=== PATIENT | male | born 1955 | race Caucasian/White ===

== ENCOUNTER 2022-01-25 09:17 | Outpatient (CLI) | payer MEDICARE, BC, SELFPAY ==
[2022-01-25 11:01] LABS: Creatinine Urine 86.5 mg/dL
[2022-01-25 11:08] LABS: Microalbumin Creatinine Ratio 10 mg/g (0-30); Microalbumin Urine 1 mg/dL
[2022-01-25 11:11] LABS: Albumin* 4.4 g/dL (3.3-5.0); Chloride* 104 mmol/L (96-114); Sodium* 138 mmol/L (135-149)
[2022-01-25 11:12] LABS: Potassium* 4.5 mmol/L (3.6-5.1)
[2022-01-25 11:14] LABS: Alanine Aminotransferase* 26 U/L (4-50); Alkaline Phosphatase* 66 U/L (40-150); Aspartate Amino Transferase* 34 U/L (12-35); Bilirubin Total* 0.5 mg/dL (0.1-1.5); Blood Urea Nitrogen* 20 mg/dL (7-30); Calcium* 9.6 mg/dL (8.4-10.6); Carbon Dioxide* 25 mmol/L (20-32); Cholesterol* 125 mg/dL (90-199); Creatinine* 1.1 mg/dL (0.5-1.5); Estimated Glomerular Filt Rate 74 ml/min; Glucose* 106 mg/dL (60-115); Triglycerides* 150 mg/dL (40-149)
[2022-01-25 11:15] LABS: HDL Cholesterol* 36 mg/dL (>=40); LDL Cholesterol Calculated 59 mg/dL (<100)
== END 2022-01-25 09:18 | disposition home or self-care (01) ==
PROVIDERS: PCP Internal Medicine; Visit Provider Internal Medicine
DX: E11.9 Type 2 diabetes mellitus without complications (principal)
CPT/HCPCS: 80053; 80061; 82043; 82570

== ENCOUNTER 2022-02-21 08:11 | Outpatient (CLI) | payer MEDICARE, BC, SELFPAY ==
--- OUTSIDE RECORDS SUMMARY | 2022-02-21 08:17 | XMS_ITS | Clinical Summary ---
:1955 Author Organization [employer] [facility] [employer] [facility] [place] [address] Care Team Providers Name Role Phone Yves Dyer MD Primary Care Provider Allergies No known active allergies Medications Medication Sig Dispensed Refills Start Date End Date Status aspirin enteric Take 1 tablet by 0 09/15/2010 Active coated 81 mg mouth once daily tabletIndications: with a meal. Chest pain naproxen (ALEVE) 220 Take 2 tablets by 0 09/15/2010 Active mg tablet mouth twice a day. omega-3 fatty Take 3 capsules by 0 10/21/2010 Active acids-vitamin E (FISH mouth once daily. OIL) 1,000 mg CapIndications: Chest pain blood sugar 4 times daily. 100 Each 6 12/19/2012 Ac tive diagnostic (ACCU-CHEK Dispense test JOSEPHINE PLUS) strips covered by stripIndications: the patient Diabetes mellitus insurance. Test 2 type II times per day. BD INSULIN PEN NEEDLE For administering 100 Each 2 07/01/2013 Active UF MINI 31 x 3/16 insulin at home. simvastatin (ZOCOR) 5 TAKE ONE TABLET AT 30 tablet 0 5 Active mg tabletIndications: BEDTIME Hyperlipidemia LDL goal < 100 ULTICARE PEN NEEDLE USE PER MD 200 Each 0 02/07/2016 Active 31 gauge x INSTRUCTIONS 1/4Indications: Type 2 diabetes mellitus without complication (HC) lancets (ACCU-CHEK 4 times daily. Test 400 Each 0 02/07/2016 Active MULTICLIX 2 times per day. LANCET)Indications: Type 2 diabetes mellitus without complication (HC) lisinopriL (PRINIVIL; Take 10 mg by mouth 0 10/30/19 22 Active ZESTRIL) 10 mg tablet once daily. metFORMIN Take 2 tablets in 0 12/21/2021 A ctive (GLUCOPHAGE) 500 mg the morning and 1 tabletIndications: tablet in the Type 2 diabetes evening with meals mellitus without complication, without long-term current use of insulin (HC) Tacosaglliv KwikPen Inject 80 units 0 12/21/2021 Active U-100 Insulin 100 subcutaneous before unit/mL (3 mL) pen bedtime. Product desired: BASAGLAR azithromycin Take 500 mg today 6 Tablet 0 12/21/2021 Active (Zithromax Z-Matias) 250 and then 250 mg mg tabletIndications: days 2-5 Pharyngitis, unspecified etiology Active Problems Problem Noted Date Depression 11/12/2013 Diabetic neuropathy 08/06/2012 Diabetes mellitus type II 11/23/2010 Overview: a system change updated this record. Thi s will not affect patient care or billing. This comment can be deleted. Palpitations 10/08/2010 Chest pain, atypical 10/08/2010 Colon polyps Carpal tunnel syndrome on both sides Encounters Date Type Specialty Care Team Description 12/21/2021 Office Visit Kelly Bee Throat Prob speedy (Sore throat, MD Winsome dysphagia and f ross. Known exposure to gra ndchild) 12/21/2021 Travel from Last 3 Months Immunizations Name Administration Dates Next Due AMB Influenza, IIV3 (Age >=3 years)(Flu 03/08/2013, 02/28/20 12, 05/07/2008 Clinic Only) Influenza, IIV3 (Age >=3 years) 03/23/2011, 05/01/2009, 03/23 Pneumococcal Poly,23-Valent (Pneumovax) 11/23/2010 Tdap 11/23/2010 Family History Medical History Relation Name Comments Heart Disease Brother 1 pacemaker and de fibillator Heart Disease Brother 2 Tommy aortic anerurysm , kidney transplant Cancer Father multiple myeloma Diabetes Father Heart Disease Father quad bypass Heart Disease Mother A fib Stroke Mother several strokes, of stroke at 70 Relation Name Status Comments Brother 1 Brother 2 Tommy Father Alive Mother (Age 70) CVA Social History Tobacco Use Types Packs/Day Years Used Date Former Smoker Smokeless Tobacco: Never Used Tobacco Cessation: Counseling Given: Yes Alcohol Use Standard Drinks/Week Comments Not Currently 0 (1 standard drink = 0.6 oz pure alcoho l) Sex Assigned at Date Recorded Not on file Obstetrics History Last Filed Vital Signs Vital Sign Reading Time Taken Comments Blood Pressure 127/77 12/21/2021 3:09 PM CDT Pulse 63 12/21/2021 3:09 PM CDT Temperature 36.8 ??C (98.3 ??F) 12/21/2021 3:09 PM CDT Respiratory Rate - - Oxygen Saturation 96% 12/21/2021 3:09 PM CDT Inhaled Oxygen Concentration - - Weight 104.1 kg (229 lb 6.4 oz) 10/29/2013 1:58 PM CDT Height 185.4 cm (6' 0.99) 10/29/2013 1:58 PM CDT Body Mass Index 30.27 10/29/2013 1:58 PM CDT Plan of Treatment Health Maintenance Due Date Last Done Comments Depression screening for age 12+ 1966 BMI (ht and wt on same day) for 1972 age 18+ Hepatitis C screening for age 0510/11/1972 18-79 Colonoscopy through age 75 10/12/1999 Zoster (shingles) series for age 0510/11/2004 50+ (1 of 2) AAA screening age 55-77 2009 Pneumococcal series for age 65+ (2 11/24/2011 11/23/2010 - PCV) Lipids for age 45-75 10/29/2018 10/29/2013, 08/06/2012, 01/04/2012, Additional history exists Medicare Wellness for age 65+ 10/12/2019 Tetanus booster 11/23/2020 11/23/2010 Influenza for age 65+ 01/20/2022 03/08/2013, 02/28/2012, 03/23/2011, Additional history exists Tdap Completed 11/23/2010 COVID-19 vaccine series Completed 10/21/2021, 04/12/2021, 08/21/2020, Additional history exists Procedures Procedure Name Priority Date/Time Associated Diagnosis Comme nts STREP A PCR Routine 12/21/2021 3:29 PM Sore throat Results f or this CDT procedure are i n the results section. THROAT RAPID STREP Routine 12/21/2021 3:11 PM Sore throat Res ults for this ONLY CLINIC CDT procedure are i n the results section. from Last 3 Months Results STREP A PCR (12/21/2021 3:29 PM CDT) Analysis Performed At [facility] Signature GROUP A STREP Negative 12/21/2021 [facility] 11:11 PM CDT LAB[facility]ATORY[facility] Specimen Anatomical Collection Method Collection Time Receive d Time (Source) Location / / Volume Laterality Throat SPECIMEN FROM Non-Blood / 12/21/2021 3:29 PM 12/22/19 22 3:29 THROAT / Unknown Unknown CDT PM CDT Kelly Bee MD MICROBIOLOGY Performing Organization Address City/State/ZIP Code Phon e Number [facility] [address] [place] [address] LABORATORY-CENTRAL 2000 LABORATORY THROAT RAPID STREP ONLY CLINIC (12/21/2021 3:11 PM CDT) Analysis Performed At [facility] Signature THROAT RAPID Negative 12/21/2021 [facility] STREP A 3:29 PM CDT [facility] Specimen Anatomical Collection Method Collection Time Receive d Time (Source) Location / / Volume Laterality Throat SPECIMEN FROM Non-Blood / 12/21/2021 3:11 PM 12/22/19 22 3:20 THROAT / Unknown Unknown CDT PM CDT Kelly Bee MD MICROBIOLOGY Performing Organization Address City/State/ZIP Code Phon e Number [facility] [address] [facility] [address] from Last 3 Months Insurance Payer Benefit Plan / Subscriber ID Effective Dates Phone Addre ss Type Group BLUE [employer]OSS [place] [employer] [id number] 2019-Present [address] [address] [place], [place] [id number] Care Teams Car Coupler Relationship Specialty Start Date End Date Yves Dyer MD PCP - General Internal Medicine 12/21/211999 [place] [address] (work)
== END 2022-02-21 08:12 | disposition home or self-care (01) ==
LOC: OP CLINIC 08:14
PROVIDERS: PCP Internal Medicine; Visit Provider Surgery
DX: Z12.11 Encounter for screening for malignant neoplasm of colon (principal); K63.5 Polyp of colon; K57.30 Diverticulosis of large intestine without perforation or abscess without bleeding; Z86.010 Personal history of colon polyps
CPT/HCPCS: 45385; 88305; 99153; J2250; J3010

== ENCOUNTER 2022-08-19 08:20 | Outpatient (CLI) | payer MEDICARE, BC, SELFPAY | END 2022-08-19 08:21 | disposition home or self-care (01) | LOC: NFLDREF 12:10 | PROVIDERS: PCP Internal Medicine; Referring Provider Internal Medicine; Visit Provider Internal Medicine | DX: Z00.00 Encounter for general adult medical examination without abnormal findings (principal); E11.9 Type 2 diabetes mellitus without complications; E78.5 Hyperlipidemia, unspecified; E66.9 Obesity, unspecified; G31.09 Other frontotemporal neurocognitive disorder; Z12.5 Encounter for screening for malignant neoplasm of prostate | CPT/HCPCS: 84153 ==

== ENCOUNTER 2023-01-30 09:14 | Outpatient (CLI) | payer MEDICARE, BC, SELFPAY ==
--- OUTSIDE RECORDS SUMMARY | 2023-01-30 15:04 | XMS_ITS | Continuity of Care Document ---
Author Name Unknown Organization Z [facility] [place] Address [address] [place] [address] [address] [place] [address] Phone Care Team Providers Care Shearer Helper Name Role Phone Lemuel Jensen Unavailable Unavailable Advance Directives Directive Yes / No Effective Date File Name No Information Encounters Encounter Description Practice Location Reason(s) For Visit Diagnoses Date Provider Providers Copied on Encounter Z [facility], [address] [place], [place] [address] [address], [place], [address], [place] tel:[phone] [facility] No Information [address], [place], [place], [id number] , [place]. tel:[phone] Family History Family Member Type Diagnosis Age At Onset No Information Payers Payer name Insurance type Covered democrat ID Authoriza tion(s) No Information Social History Type Description Quantity Date Captured Comments Sex Male Smoking Status No Information Chief Complaint And Reason For Visit No Information Reason For Referral Reason For Referral No Information History Of Present Illness Encounter Date Complaint History Of Prese nt Illness No Information Functional Status Date Functional Assessmen t No Information Instructions Date Instruction Additional Infor mation No Information Assessments Type Assessment Date No Information Patient Care Teams Name Effective Dates (start - stop) Status Members No Information
== END 2023-01-30 09:15 | disposition home or self-care (01) ==
LOC: NFLDREF 15:02
PROVIDERS: PCP Internal Medicine; Referring Provider Internal Medicine; Visit Provider Internal Medicine
DX: E78.5 Hyperlipidemia, unspecified (principal); E11.9 Type 2 diabetes mellitus without complications; E66.9 Obesity, unspecified
CPT/HCPCS: 80053; 80061; 82043; 82570

== ENCOUNTER 2023-11-28 10:43 | Outpatient (CLI) | payer MEDICARE, BC, SELFPAY ==
--- OUTSIDE RECORDS SUMMARY | 2023-11-29 06:34 | XMS_ITS | Clinical Summary ---
Author Organization [employer] [facility] [employer] [facility] Address [place], [place] [address] Care Team Providers Care Septic Pump Truck Driver Name Role Phone Yves Dyer MD Primary Care Provider [phone] Allergies No known active allergies Medications Medication Sig Dispensed Refills Start Date End Date Status aspirin enteric coated 81 mg tabletIndications:C hest pain Take 1 tablet by mouth once daily with a meal. 0 09/15/2010 Active naproxen (ALEVE) 220 mg tablet Take 2 tablets by mouth twice a day. 0 09/15/2010 Active omega-3 fatty acids-vitamin E (FISH OIL) 1,000 mg CapIndications:Ches t pain Take 3 capsules by mouth once daily. 0 10/21/2010 Active blood sugar diagnostic (ACCU-CHEK JOSEPHINE PLUS) stripIndications:Di abetes mellitus type II 4 times daily. Dispense test strips covered by the patient insurance. Test 2 times per day. 100 Each 6 12/19/2012 Active BD INSULIN PEN NEEDLE UF MINI 31 x 3/16 For administering insulin at home. 100 Each 2 07/01/2013 Active simvastatin (ZOCOR) 5 mg tabletIndications:H yperlipidemia LDL goal < 100 TAKE ONE TABLET AT BEDTIME 30 tablet 0 06/16/2014 Active ULTICARE PEN NEEDLE 31 gauge x 1/4Indications:Typ e 2 diabetes mellitus without complication (HC) USE PER MD INSTRUCTIONS 200 Each 0 02/07/2016 Active lancets (ACCU-CHEK MULTICLIX LANCET)Indications: Type 2 diabetes mellitus without complication (HC) 4 times daily. Test 2 times per day. 400 Each 0 02/07/2016 Active lisinopriL (PRINIVIL; ZESTRIL) 10 mg tablet Take 10 mg by mouth once daily. 10/29/2021 Active metFORMIN (GLUCOPHAGE) 500 mg tabletIndications:T ype 2 diabetes mellitus without complication, without long-term current use of insulin (HC) Take 2 tablets in the morning and 1 tablet in the evening with meals 12/21/2021 Active Basaglar KwikPen U-100 Insulin 100 unit/mL (3 mL) pen Inject 80 units subcutaneous before bedtime. Product desired: BASAGLAR 0 12/21/2021 Active azithromycin (Zithromax Z-Matias) 250 mg tabletIndications:P haryngitis, unspecified etiology Take 500 mg today and then 250 mg days 2-5 6 Tablet 12/21/2021 Active Active Problems Problem Noted Date Diagnosed Date Depression 11/12/2013 Diabetic neuropathy 08/06/2012 Diabetes mellitus type II 11/23/2010 Overview: a system change updated this record. This will not affect patient care or billing. This comment can be deleted. Palpitations 10/08/2010 Chest pain, atypical 10/08/2010 Colon polyps Carpal tunnel syndrome on both sides Immunizations Name Administration Dates Next Due AMB Influenza, IIV3 (Age >=3 years)(Flu Clinic Only) 03/08/2013,02/28/2012,05/07/2008 Influenza, IIV3 (Age >=3 years) 03/23/2011,05/01,04/17/2007 Pneumococcal Poly,23-Valent (Pneumovax) 11/24/19 11 Tdap 11/23/2010 Family History Medical History Relation Name Comments Heart Disease Brother 1 pacemaker and defibillator Heart Disease Brother 2 Tommy aortic anerury sm, kidney transplant Cancer Father multiple myelom a Diabetes Father Heart Disease Father quad bypass Heart Disease Mother A fib Stroke Mother several strokes , of stroke at 70 Relation Name Status Comments Brother 1 Brother 2 Tommy Father Alive Mother (Age 70) CVA Social History Tobacco Use Types Packs/Day Years Used Date Smoking Tobacco: Former Smokeless Tobacco: Never Tobacco Cessation:Counseling Given: Yes Alcohol Use Standard Drinks/Week Comments Not Currently 0 (1 standard drink = 0.6 oz pur e alcohol) Social Connections Answer Date Recorded Frequency of Communication with Friends and Fami ly Not on file 12/21/2021 Sex and Gender Information Value Date Recorded Sex Assigned at Not on file Gender Identity Not on file Sexual Orientation Not on file Obstetrics History Last Filed Vital Signs Vital Sign Reading Time Taken Comments Blood Pressure 127/77 12/21/2021 3:09 PM CDT Pulse 63 12/21/2021 3:09 PM CDT Temperature 36.8 ??C (98.3 ??F) 12/21/2021 3:09 PM CD T Respiratory Rate - - Oxygen Saturation 96% 12/21/2021 3:09 PM CDT Inhaled Oxygen Concentration - - Weight 104.1 kg (229 lb 6.4 oz) 10/29/2013 1:58 PM CDT Height 185.4 cm (6' 0.99) 10/29/2013 1:58 PM CD T Body Mass Index 30.27 10/29/2013 1:58 PM CDT Plan of Treatment Health Maintenance Due Date Last Done Comments Depression screening for age 12+ 1966 BMI (ht and wt on same day) for age 18+ 1972 Hepatitis C screening for ag e 18-79 1972 Colonoscopy through age 75 10/12/1999 Zoster (shingles) series for age 50+ (1 of 2) 2004 Pneumococcal series for age 65+ (2 of 2 - PCV) 11/24/2011 11/23/2010 Lipids for age 45-75 10/29/2018 10/29/2013, 08/06/2012, 01/04/2012, Additional history exists AAA screening age 65-74 10/12/2019 Medicare Wellness for age 65+ 10/12/2019 Tetanus booster 11/23/2020 11/23/2010 COVID-19 vaccine series (2022-24 season) 2023 11/08/2022, 06/20/2022, 10/21/2021, Additional history exists Influenza for age 65+ 01/21/2024 03/08/2013 , 02/28/2012, 03/23/2011, Additional history exists Tdap Completed 11/23/2010 Procedures Procedure Name Priority Date/Time Associated Diagnosis Comments LIPID PANEL W REFLEX MEASURED LDL Routine 10/29/2013 3:19 PM CDT Depression from Last 3 Months or Most Recently Relevant to Health Maintenance Results * (ABNORMAL) LIPID PANEL W REFLEX MEASURED LDL (10/29/2013 3:19 PM CDT) CHOLESTEROL,TOTAL 140 100 - 199 mg/dL 10/29/2013 3:50 PM CDT [facility] TRIGLYCERIDES 102 <150 mg/dL 10/29/2013 3:50 PM CDT [facility] HDL CHOLESTEROL 39(L) >40 mg/dL 4 3:50 PM CDT [facility] NON-HDL CHOLESTEROL 101 <145 mg/dl 10/29/2013 3:50 PM CDT [facility] CHOL/HDL RATIO 3.59 <4.50 10/29/2013 3:50 PM CDT [facility] LDL CHOLESTEROL 81 <=130 mg/dL 10/29/2013 3:50 PM CDT [facility] PATIENT STATUS NON-FASTI NG 10/29/2013 3:50 PM CDT [facility] Blood specimen (specimen) BLOOD SPECIMEN / Unknown Venipuncture / Unknown 10/29/2013 3:19 PM CDT 10/29/2013 3:20 PM CDT Kameron Wang MD CHEMISTRY [facility] [address] [place] [address], from Last 3 Months or Most Recently Relevant to Health Maintenance Care Teams Septic Pump Truck Driver Relationship Specialty Start Date End Date Yves Dyer MD [address] [place] [address] PCP - General Internal Medicine 12/21/21
--- OUTSIDE RECORDS SUMMARY | 2023-11-29 06:34 | XMS_ITS | Continuity of Care Document ---
Author Organization Z [facility] [place] Address [address] [place] [address] [address] [place] [address] Phone Care Team Providers Care Duplex Trimmer Name Role Phone Darylwileyjeff Lemuel KENNEDY Unavailable Unavailable Advance Directives Directive Yes / No Effective Date File Name No Information Encounters Encounter Description Practice Location Reason(s) For Visit Diagnoses Date Provider Providers Copied on Encounter Z [facility], [address] [place], [place] [address] [address], [place], [address], [place] tel:[phone] [facility] No Information [address] [place] [address] [address], [place], [place], [id number] , [place]. tel:[phone] Family History Family Member Type Diagnosis Age At Onset No Information Payers Payer name Insurance type Covered green party ID Authoriza tion(s) No Information Social History [...]
== END 2023-11-28 10:44 | disposition home or self-care (01) ==
LOC: NFLDREF 11-29 06:32
PROVIDERS: PCP Internal Medicine; Referring Provider Internal Medicine; Visit Provider Internal Medicine
DX: E78.5 Hyperlipidemia, unspecified (principal); E11.65 Type 2 diabetes mellitus with hyperglycemia; Z79.84 Long term (current) use of oral hypoglycemic drugs
CPT/HCPCS: 80053; 80061; 82043; 82570

== ENCOUNTER 2024-03-11 09:10 | Outpatient (CLI) | payer MEDICARE, BC, SELFPAY ==
--- OUTSIDE RECORDS SUMMARY | 2024-03-12 16:48 | XMS_ITS | Continuity of Care Document ---
Author Organization Z [facility] [place] Address [address] [place] [address] [address] [place] [address] Phone Care Team Providers Care Sausage Machine Operator Name Role Phone Darylwileyjeff Lemuel KENNEDY Unavailable Unavailable Advance Directives Directive Yes / No Effective Date File Name No Information Encounters Encounter Description Practice Location Reason(s) For Visit Diagnoses Date Provider Providers Copied on Encounter Z [facility], [address] [place], [place] [address] [address], [place], [address], [place] tel:[phone] [facility] No Information [address] [place] [address] [address], [place], [place], [id number] , [place]. tel:[phone] Family History Family Member Type Diagnosis Age [...]
--- OUTSIDE RECORDS SUMMARY | 2024-03-12 16:48 | XMS_ITS | Clinical Summary ---
Author Organization [employer] [facility] [employer] Address [place], [place] [address] Care Team Providers Care Stars Analytical Lead Name Role Phone Yves Dyer MD Primary Care Provider [phone] Allergies No known active allergies Medications Medication [...] neuropathy 08/06/2012 Diabetes mellitus type II 11/23/2010 Overview (08/06/2013): a system change updated this record. This [...] for age 50+ (1 of 2) 2004 Lipids for age 45-75 10/29/2018 10/29/2013, 08/06/2012, 01/04/2012, Additional history exists Medicare Wellness for age 65+ 10/12/2019 Pneumococcal series for age 65+ (2 of 2 - PCV) 10/12/2019 11/23/2010 Tetanus booster 11/23/2020 11/23/2010 COVID-19 vaccine series ( season) 2024 11/08/2022, 06/20/2022, 10/21/2021, Additional history exists Influenza [...] - 199 mg/dL 10/29/2013 3:50 PM CDT [facility] TRIGLYCERIDES 102 <150 mg/dL 10/29/2013 3:50 PM CDT [facility] HDL CHOLESTEROL 39(L) >40 mg/dL 4 3:50 PM CDT [facility] NON-HDL CHOLESTEROL 101 <145 mg/dl 10/29/2013 3:50 PM CDT [facility] CHOL/HDL RATIO 3.59 <4.50 10/29/2013 3:50 PM CDT [facility] LDL CHOLESTEROL 81 <=130 mg/dL 10/29/2013 3:50 PM CDT [facility] PATIENT STATUS NON-FASTI NG 10/29/2013 3:50 PM CDT [facility] Blood specimen (specimen) BLOOD SPECIMEN / Unknown Venipuncture / Unknown 10/29/2013 3:19 PM CDT 10/29/2013 3:20 PM CDT Kameron Wang MD CHEMISTRY [facility] [address] [place] [address], from Last 3 Months or Most Recently Relevant to Health Maintenance Care Teams Stars Analytical Lead Relationship Specialty Start Date End Date Yves Dyer MD [address] [place] [address] PCP - General Internal Medicine 12/21/21
== END 2024-03-11 09:11 | disposition home or self-care (01) ==
LOC: NFLDREF 03-12 16:46
PROVIDERS: PCP Internal Medicine; Referring Provider Internal Medicine; Visit Provider Internal Medicine
DX: E78.5 Hyperlipidemia, unspecified (principal); E11.9 Type 2 diabetes mellitus without complications; Z12.5 Encounter for screening for malignant neoplasm of prostate; E66.9 Obesity, unspecified
CPT/HCPCS: 80053; 80061; G0103

== ENCOUNTER 2024-08-23 09:29 | Outpatient (CLI) | payer MEDICARE, BC, SELFPAY | END 2024-08-23 09:30 | disposition home or self-care (01) | LOC: NFLDREF 08-29 03:09 | PROVIDERS: PCP Internal Medicine; Referring Provider Internal Medicine; Visit Provider Internal Medicine | DX: Z12.5 Encounter for screening for malignant neoplasm of prostate (principal); E11.65 Type 2 diabetes mellitus with hyperglycemia; E78.5 Hyperlipidemia, unspecified; Z79.84 Long term (current) use of oral hypoglycemic drugs | CPT/HCPCS: 80053; 80061; 82043; 82570; G0103 ==

== ENCOUNTER 2025-03-03 09:26 | Outpatient (CLI) | payer MEDICARE, BC, SELFPAY | END 2025-03-03 09:27 | disposition home or self-care (01) | LOC: NFLDREF 03-04 09:03 | PROVIDERS: PCP Internal Medicine; Referring Provider Internal Medicine; Visit Provider Internal Medicine | DX: Z00.00 Encounter for general adult medical examination without abnormal findings (principal); E78.5 Hyperlipidemia, unspecified; E11.65 Type 2 diabetes mellitus with hyperglycemia; Z12.5 Encounter for screening for malignant neoplasm of prostate | CPT/HCPCS: 80053; 80061; G0103 ==